=== PATIENT | male | born 2000 | race Asian ===

== ENCOUNTER 2019-11-14 16:02 | Emergency (ER) | payer MEDICAID ==
[~2019-11-14] VITALS: Ht 177.8 cm; Wt 63.5 kg
[2019-11-14 16:18] VITALS: BP_SYST 132
--- NOTE | 2019-11-14 16:23 | NUR ---
Pt brought by self, A&Ox4, ambulatory , Pt presents to ER with L hand pain after a weight fell on L hand, bruising noted, skin pink and warm, cap refill <3.
--- NOTE | 2019-11-14 16:45 | NUR ---
Lizbeth Harrison NEGATIVE ASSEMBLER at bedside examining patient
[2019-11-14 17:56] VITALS: BP_SYST 132
--- NOTE | 2019-11-14 17:57 | NUR ---
Patient given written and verbal discharge instructions and verbalizes understanding. ER MD discussed with patient the results and treatment provided. Patient in stable condition. ID arm band removed. Rx of Motrin given. Patient educated on pain management and to follow up with PMD. Pain Scale 2/10 tolerable for patient. Opportunity for questions provided and answered. Medication side effect fact sheet provided.
== END 2019-11-14 17:56 | disposition home or self-care (01) ==
LOC: SED 16:02
DX: S62.397A Other fracture of fifth metacarpal bone, left hand, initial encounter for closed fracture (principal); R03.0 Elevated blood-pressure reading, without diagnosis of hypertension; X50.0XXA Overexertion from strenuous movement or load, initial encounter; Y93.89 Activity, other specified; Y92.89 Other specified places as the place of occurrence of the external cause; Y99.8 Other external cause status
CPT/HCPCS: 99283